=== PATIENT | male | born 1990 | race Two or more races ===

== ENCOUNTER 2024-01-22 00:13 | Emergency (ER) | payer MEDICAID, OTHER ==
[~2024-01-22] VITALS: Ht 170.2 cm; Wt 84.5 kg
[2024-01-22 04:40] LABS: Basophils # (auto) 0 10 ^3/uL (0-0.2); Basophils % (auto) 0.4 % (0.0-2.0); Eosinophils # (auto) 0.1 10 ^3/uL (0-0.8); Eosinophils % (auto) 1.4 % (0.0-7.0); Hematocrit 46.1 % (41.0-53.0); Hemoglobin 15.9 g/dL (13.5-17.5); Lymphocytes # (auto) 3.4 10 ^3/uL (0.4-5.4); Lymphocytes % (auto) 43.9 % (10.0-50.0); Mean Corpuscular Hemoglobin 31.3 pg (28.0-32.0); Mean Corpuscular Hgb Conc. 34.5 g/dL (32.0-36.0); Mean Corpuscular Volume 90.8 fL (80.0-100.0); Monocytes # (auto) 0.5 10 ^3/uL (0-1.3); Monocytes % (auto) 6.3 % (0.0-12.0); Neutrophils # (auto) 3.7 10 ^3/uL (1.6-8.6); Nucleated Red Blood Cells % 0.1 %; Platelet Count (auto) 243 10^3/uL (140-450); Red Blood Cells 5.08 10^6/uL (4.5-5.90); Red Cell Distribution Width 13.8 % (11.8-14.3); White Blood Cell 7.8 10^3/uL (4.4-10.8)
[2024-01-22 04:45] LABS: Urine Bacteria None Seen /hpf (None Seen); Urine WBC None Seen /hpf (0 - 3)
[2024-01-22 04:54] LABS: Urine Blood Negative /uL (Negative); Urine Clarity Clear (Clear); Urine Color Colorless (Yellow); Urine Protein, UAD Negative (Negative); Urine Specific Gravity 1.006 (1.001-1.035); Urine Urobilinogen Normal (Negative)
[2024-01-22 04:58] LABS: Alanine Aminotransferase 45 U/L (7-40); Albumin 4.5 g/dL (3.2-4.8); Alkaline Phosphatase 100 U/L (46-116); Anion Gap 9 (5-15); Aspartate Aminotransferase 24 U/L (13-40); Bilirubin, Total 0.3 mg/dL (0.2-1.0); Blood Urea Nitrogen 7 mg/dL (9-23); Calcium 9.4 mg/dL (8.7-10.4); Carbon Dioxide 24 mmol/L (20-30); Chloride 110 mmol/L (98-107); Glucose 112 mg/dL (74-106); Potassium 3.5 mmol/L (3.5-5.1); Sodium 143 mmol/L (136-145); Total Protein 6.8 g/dL (5.7-8.2)
[2024-01-22 05:04] LABS: Salicylate < 3.0 mg/dL (2.8-20.0)
[2024-01-22 05:06] LABS: Amphetamine Screen, Urine Neg (NEGATIVE); Barbiturate Scree,Urine Neg (NEGATIVE); Benzodiazephine Screen, Urine Neg (NEGATIVE); Cannabinoid Screen, Urine Pos (NEGATIVE); Cocaine Screen, Urine Neg (NEGATIVE); Opiate Scree,Urine Neg (NEGATIVE); Phencyclidine Screen, Urine Neg (NEGATIVE)
[2024-01-22 05:17] LABS: Acetaminophen < 2.0 UG/ML (10.0-20.0)
[2024-01-22 08:00] VITALS: PULSE 73; RESP 16; O2SAT 99
[2024-01-22] MEDS: LORazepam 0.5 MG TAB PO ONE ×2 (10:28→21:22)
[2024-01-22 23:15] VITALS: PULSE 62; RESP 12; O2SAT 100
[2024-01-23 08:47] VITALS: PULSE 80; RESP 18; O2SAT 96
[2024-01-23] MEDS ORDERED: QUEtiapine FUMARATE 100 MG TAB PO ONE (10:00)
[2024-01-23] MEDS: QUEtiapine FUMARATE 100 MG TAB PO SCH (10:21)
[2024-01-23 20:48] VITALS: BP 104/86; PULSE 104; RESP 16; TEMP 98.3; O2SAT 99
== END 2024-01-23 21:20 | disposition short-term general hospital (02) ==
LOC: ER 00:13
DX: F32.1 Major depressive disorder, single episode, moderate (principal); R45.851 Suicidal ideations; F12.90 Cannabis use, unspecified, uncomplicated; Z98.890 Other specified postprocedural states
CPT/HCPCS: 36415; 80053; 80307; 80320; 80329; 81001; 85025